=== PATIENT | male | born 1960 | race African-American/Black ===

== ENCOUNTER 2017-04-01 02:48 | Emergency (ER) | payer OTHER ==
[~2017-04-01] VITALS: Ht 167.6 cm; Wt 97.1 kg
[~2017-04-01 02:48] MED LIST: ALBMDI INH; AMLO5TAB4 PO; ARIP30TA PO; ASPI-859 PO; ATRMDI INH; BUPR-120 PO; GLU500 PO; HYDR25TA4 PO; LOSA50TA3 PO; MIRT45TA5 PO; OMEP20CA10 PO; TRAZ-126 PO
[2017-04-01 03:04] VITALS: BP_SYST 148
--- NOTE | 2017-04-01 03:04 | NUR ---
Pt ambulatory to bed 8 for evaluation
--- NOTE | 2017-04-01 03:05 | NUR ---
Patient AOx4, ambulatory, presents to ER with complaint of epigastric pain x1 week and constipation x2 days. Patient states he is able to pass gas and is burping a lot. No other symptoms or complaints at this time.
--- NOTE | 2017-04-01 03:07 | NUR ---
ER MD Ley at bedside for medical evaluation.
[2017-04-01] MEDS ORDERED: NACL 0.9% 1,000 ML IV ONE (03:15)
[2017-04-01] MEDS ORDERED: ASPIRIN 81 MG TAB.CHEW PO ONE (03:15)
--- NOTE | 2017-04-01 03:20 | NUR ---
# 20 gauge angiocath placed to RAC. Use of asceptic technique. Opsite placed over site. Blood return noted. Blood for lab drawn from site. Flushed with 10 cc of normal saline. No evidence of infiltration noted. Patient tolerated well.
[2017-04-01 03:43] LABS: INR 1.1 (0.80-1.20); PROTHROMBIN TIME 10.9 SECS (9.5-12.5)
--- NOTE | 2017-04-01 04:00 | NUR ---
IVF infusing with no s/s of infiltration at this time. Will cont to monitor.
--- NOTE | 2017-04-01 04:05 | NUR ---
No adverse reactions noted after medication administration. Will continue to monitor.
[2017-04-01] MEDS ORDERED: PANTOPRAZOLE SODIUM 40 MG TAB PO ONE (04:15)
[2017-04-01 04:35] LABS: HEMATOCRIT 48.5 % (36-54); MEAN CORPUSCULAR VOLUME 71 fL (79.0-98.0); RED BLOOD CELL COUNT(AUTO) 6.84 MIL/uL (4.2-6.2)
[2017-04-01 04:36] LABS: MEAN CORPUSCULAR HEMOGLOBIN 22 pg (27-31); MEAN CORPUSCULAR HGB CONC 31 % (32-36); PLATELET COUNT (AUTO) 232 K/uL (130-430); RED CELL DISTRIBUTION WIDTH 14.9 % (9.0-15.0)
[2017-04-01 04:38] LABS: BASOPHILS % (AUTO) 3.1 % (0.0-2.0); EOSINOPHILS % (AUTO) 2.1 % (0.0-4.0); LYMPHOCYTES # (AUTO) 2.4 K/uL (1.0-5.5); LYMPHOCYTES % (AUTO) 34.4 % (20.5-51.5); MONOCYTES # (AUTO) 0.7 K/uL (0.0-1.0); MONOCYTES % (AUTO) 9.4 % (1.7-9.3); NEUTROPHILS # (AUTO) 3.6 K/uL (1.8-7.7)
[2017-04-01 04:39] LABS: BASOPHILS # (AUTO) 0.2 K/uL (0.0-0.2); EOSINOPHILS # (AUTO) 0.1 K/uL (0.0-0.4)
[2017-04-01 05:09] LABS: POTASSIUM 3.8 mmol/L (3.5-5.1)
[2017-04-01 05:10] LABS: ALBUMIN 3.8 g/dL (3.4-4.8); CALCIUM 10.8 mg/dL (8.4-11.0); CREATININE 1.07 mg/dL (0.55-1.30); TOTAL BILIRUBIN 0.2 mg/dL (0.0-1.0)
[2017-04-01 05:57] VITALS: BP_SYST 152
--- NOTE | 2017-04-01 05:57 | NUR ---
Patient given written and verbal discharge instructions and verbalizes understanding. ER MD discussed with patient the results and treatment provided. Patient in stable condition. ID arm band removed. IV catheter removed intact and dressing applied, no active bleeding. Rx of Omeprazole and MiraLax given. Patient educated on pain management and to follow up with PMD. Pain Scale 0/10. Opportunity for questions provided and answered.
== END 2017-04-01 05:57 | disposition home or self-care (01) ==
LOC: SED 02:48
DX: K29.70 Gastritis, unspecified, without bleeding (principal); J44.9 Chronic obstructive pulmonary disease, unspecified; K21.9 Gastro-esophageal reflux disease without esophagitis; I10 Essential (primary) hypertension; Z79.899 Other long term (current) drug therapy
CPT/HCPCS: 36415; 71045; 74021; 80053; 82550; 85025; 85610; 85730; 93005; 96360; 99285; J7030

== ENCOUNTER 2017-04-06 06:28 | Emergency (ER) | payer OTHER ==
[~2017-04-06] VITALS: Ht 167.6 cm; Wt 97.1 kg
[2017-04-06 06:35] VITALS: BP_SYST 147
--- NOTE | 2017-04-06 06:35 | NUR ---
Patient to ER bed 8 to gown for evaluation. Side rails up. Report given to ANNA MARIE CHAND.
--- NOTE | 2017-04-06 06:46 | NUR ---
PT AAOX4 CAME IN FROM HOME WITH A COMPLAINT OF BLACK STOOL FOR THE PAST 3 DAYS, NO CONSTIPATION, DIARRHEA NOTED. REPORTS DIZZINESS AND UPPER BODY CRAMPS. HAS HX OF HYPERTENSION AND COPD AND CURRENTLY A SMOKER. NO CHEST TIGHTNESS, DIFFICULTY BREATHING NOTED. SAFETY PRECAUTION OBSEREVED, WILL CONTINUE TO MONITOR PT.
--- NOTE | 2017-04-06 06:52 | NUR ---
OLIVIA MAC AT BEDSIDE FOR MEDICAL EVALUATION.
--- NOTE | 2017-04-06 07:15 | NUR ---
# 20 gauge angiocath placed to LEFT FOREARM. Use of asceptic technique. Opsite placed over site. Blood return noted. Blood for lab drawn from site. Flushed with 10 cc of normal saline. No evidence of infiltration noted. Patient tolerated well.
--- NOTE | 2017-04-06 07:20 | NUR ---
REPORT GIVEN TO ONCOMING RN.
--- NOTE | 2017-04-06 07:21 | NUR ---
Chest xray done.
[2017-04-06] MEDS: ONDANSETRON HCL 4 MG/2 ML VIAL IM ONE (07:22)
[2017-04-06] MEDS: PANTOPRAZOLE SODIUM 40 MG/VIAL (PROTONIX) IVP ONE (07:23)
[2017-04-06] MEDS: NACL 0.9% 1,000 ML IV ONE (07:26)
--- NOTE | 2017-04-06 07:26 | NUR ---
ZOFRAN , PROTONIX IV GIVEN. IVF NSS STARTED ORDERED.
[2017-04-06 07:39] LABS: BASOPHILS # (AUTO) 0.1 K/uL (0.0-0.2); BASOPHILS % (AUTO) 1.5 % (0.0-2.0); EOSINOPHILS # (AUTO) 0.2 K/uL (0.0-0.4); EOSINOPHILS % (AUTO) 2.3 % (0.0-4.0); HEMATOCRIT 47.5 % (36-54); LYMPHOCYTES # (AUTO) 2.8 K/uL (1.0-5.5); LYMPHOCYTES % (AUTO) 33.9 % (20.5-51.5); MEAN CORPUSCULAR HEMOGLOBIN 23 pg (27-31); MEAN CORPUSCULAR HGB CONC 32 % (32-36); MEAN CORPUSCULAR VOLUME 71 fL (79.0-98.0); MONOCYTES # (AUTO) 0.7 K/uL (0.0-1.0); NEUTROPHILS # (AUTO) 4.4 K/uL (1.8-7.7); NEUTROPHILS % (AUTO) 54.3 % (40.0-70.0); PLATELET COUNT (AUTO) 207 K/uL (130-430); RED BLOOD CELL COUNT(AUTO) 6.67 MIL/uL (4.2-6.2); RED CELL DISTRIBUTION WIDTH 14.7 % (9.0-15.0); WHITE BLOOD COUNT (AUTO) 8.2 K/uL (4.8-10.8)
[2017-04-06 07:41] LABS: CREATININE 0.89 mg/dL (0.55-1.30)
[2017-04-06 07:44] LABS: PROTHROMBIN TIME 10.4 SECS (9.5-12.5)
[2017-04-06 07:46] LABS: ALBUMIN 4.2 g/dL (3.4-4.8); TOTAL BILIRUBIN 0.4 mg/dL (0.0-1.0)
--- NOTE | 2017-04-06 09:40 | NUR ---
Patient given written and verbal discharge instructions and verbalizes understanding. ER MD PEDRAZA discussed with patient the results and treatment provided. Patient in stable condition. ID arm band removed. IV catheter removed intact and dressing applied, no active bleeding. NO Rx given. Patient educated on pain management and to follow up with PMD. Pain Scale 0 . Opportunity for questions provided and answered.
[2017-04-06 09:48] VITALS: BP_SYST 130
== END 2017-04-06 09:48 | disposition home or self-care (01) ==
LOC: SED 06:28
DX: K29.70 Gastritis, unspecified, without bleeding (principal); J44.9 Chronic obstructive pulmonary disease, unspecified; K21.9 Gastro-esophageal reflux disease without esophagitis; I10 Essential (primary) hypertension; Z79.899 Other long term (current) drug therapy
CPT/HCPCS: 36415; 71045; 80053; 82272; 85025; 85610; 85730; 86886; 86900; 86901; 93005; 96361; 96374; 96375; 99285; C9113; J2405; J7030

== ENCOUNTER 2020-09-05 13:10 | Inpatient (IN) | payer MEDICAID, SELFPAY ==
[~2020-09-05] VITALS: Ht 167.6 cm; Wt 93.0 kg
[~2020-09-05 13:10] MED LIST changes: -MIRT45TA5 PO; +MIRT45TA83 PO; -OMEP20CA10 PO; +OMEP20CA15 PO; -TRAZ-126 PO; +TRAZ-251 PO
[2020-09-05 13:12] VITALS: BP_SYST 154
[2020-09-05 14:43] LABS: BARBITURATE, URINE NEGATIVE (NEG <=200); BENZODIAZEPINE, URINE NEGATIVE (NEG <=150); CANNABINOID, URINE NEGATIVE (NEG <=50); COCAINE, URINE NEGATIVE (NEG <=150); METHAMPHETAMINES SCREEN,URINE NEGATIVE (NEG <=500); OPIATE, URINE NEGATIVE (NEG <=100); PHENCYCLIDINE SCREEN,URINE NEGATIVE (NEG <=25); UR TRICYCLIC ANTIDEPRESSANTS NEGATIVE (NEG <=300); URINE AMPHETAMINE NEGATIVE (NEG <=500); URINE METHADONE NEGATIVE (NEG <=200); URINE OXYCODONE SCREEN NEGATIVE (NEG <=100); URINE PROPOXYPHENE SCREEN NEGATIVE (NEG <=300)
[2020-09-05] MEDS ORDERED: ASPIRIN 325 MG TABLET (ECOTRIN) PO ONE (14:43)
[2020-09-05] MEDS ORDERED: NITROGLYCERIN 0.4 MG TAB.SUBL SL ONE ×2 (14:44→14:45)
[2020-09-05] MEDS ORDERED: ASPIRIN 325 MG TABLET PO ONE (14:45)
[2020-09-05 15:06] LABS: ANION GAP 12 (5-15); CALCIUM 9.1 mg/dL (8.4-11.0); CHLORIDE 98 mmol/L (98-107); CREATININE 0.94 mg/dL (0.55-1.30); GLUCOSE 117 mg/dL (70-99); POTASSIUM 4.2 mmol/L (3.5-5.1); SODIUM SERUM 133 mmol/L (136-145); UREA NITROGEN, BLOOD 9 mg/dL (8-21)
[2020-09-05 15:08] LABS: GFR AFRICAN AMERICAN 106 mL/min (>90)
[2020-09-05 15:10] LABS: BASOPHILS % (AUTO) 0.4 % (0.0-2.0); EOSINOPHILS # (AUTO) 0.1 K/uL (0.0-0.4); HEMATOCRIT 44.9 % (36-54); HEMOGLOBIN 14.5 g/dL (14.0-18.0); LYMPHOCYTES # (AUTO) 3.5 K/uL (1.0-5.5); LYMPHOCYTES % (AUTO) 36.4 % (20.5-51.5); MEAN CORPUSCULAR HEMOGLOBIN 22 pg (27-31); MEAN CORPUSCULAR HGB CONC 32 % (32-36); MEAN CORPUSCULAR VOLUME 69 fL (79.0-98.0); MONOCYTES # (AUTO) 0.8 K/uL (0.0-1.0); MONOCYTES % (AUTO) 8.2 % (1.7-9.3); NEUTROPHILS # (AUTO) 5.2 K/uL (1.8-7.7); PLATELET COUNT (AUTO) 231 K/uL (130-430); RED BLOOD CELL COUNT(AUTO) 6.48 MIL/uL (4.2-6.2); WHITE BLOOD COUNT (AUTO) 9.7 K/uL (4.8-10.8)
[2020-09-05 15:15] LABS: ALANINE AMINOTRANSFERASE 100 U/L (12-78); ALBUMIN 3.5 g/dL (3.4-4.8); ASPARTATE AMINOTRANSFERASE 65 U/L (10-37); TOTAL BILIRUBIN 0.4 mg/dL (0.0-1.0)
[2020-09-05] MEDS ORDERED: ACETAMINOPHEN 500 MG TABLET PO PRN (16:15)
[2020-09-05] MEDS ORDERED: NITROGLYCERIN 1 INCH (GM) OINT. TP ONE (16:15)
[2020-09-05] MEDS ORDERED: HYDROcodone/ACETAMIN 10-325 MG TAB PO ONE (16:30)
[2020-09-05] MEDS ORDERED: KETOROLAC TROMETHAMINE 30 MG VIAL IVP ONE (16:30)
[2020-09-05] MEDS ORDERED: LIP40 PO (17:12)
[2020-09-05] MEDS ORDERED: RISP2TAB5 PO (17:12)
[2020-09-05] MEDS ORDERED: GLUXR500 PO (17:12)
[2020-09-05] MEDS ORDERED: BUPR75TA20 PO (17:12)
[2020-09-05] MEDS ORDERED: LANS15CA14 PO (17:12)
[2020-09-05] MEDS ORDERED: MIRT30TA7 PO (17:12)
[2020-09-05] MEDS ORDERED: HYDR12.55 PO (17:12)
[2020-09-05] MEDS ORDERED: GABA-529 PO (17:12)
[2020-09-05] MEDS ORDERED: ASPI-1155 PO (17:12)
[2020-09-05] MEDS ORDERED: ALBMDI INH (17:12)
[2020-09-05] MEDS ORDERED: BUPR450T2 PO (17:12)
[2020-09-05] MEDS ORDERED: METO25TA3 PO (17:12)
[2020-09-05] MEDS ORDERED: AMLO5TAB4 PO (17:12)
[2020-09-05] MEDS ORDERED: LOSA100T3 PO (17:12)
[2020-09-05 17:46] VITALS: BP_SYST 133
[2020-09-05 20:00] VITALS: BP_SYST 137
[2020-09-06] VITALS: BP_SYST 112
[2020-09-06] MEDS ORDERED: OMEPRAZOLE Non-Formulary 20 MG CAPSULE.DR PO SCH (07:00)
[2020-09-06] MEDS ORDERED: PANTOPRAZOLE SODIUM 40 MG TAB PO SCH (07:00)
[2020-09-06 07:14] LABS: ANION GAP 6 (5-15); CALCIUM 8.7 mg/dL (8.4-11.0); CHLORIDE 99 mmol/L (98-107); CREATININE 0.87 mg/dL (0.55-1.30); GLUCOSE 96 mg/dL (70-99); POTASSIUM 3.5 mmol/L (3.5-5.1); SODIUM SERUM 130 mmol/L (136-145); UREA NITROGEN, BLOOD 12 mg/dL (8-21)
[2020-09-06 07:18] LABS: BASOPHILS % (AUTO) 0.5 % (0.0-2.0); EOSINOPHILS # (AUTO) 0.2 K/uL (0.0-0.4); EOSINOPHILS % (AUTO) 2.4 % (0.0-4.0); HEMATOCRIT 40.9 % (36-54); HEMOGLOBIN 13.2 g/dL (14.0-18.0); LYMPHOCYTES # (AUTO) 2.4 K/uL (1.0-5.5); LYMPHOCYTES % (AUTO) 33.2 % (20.5-51.5); MEAN CORPUSCULAR HEMOGLOBIN 22 pg (27-31); MEAN CORPUSCULAR HGB CONC 32 % (32-36); MEAN CORPUSCULAR VOLUME 69 fL (79.0-98.0); MONOCYTES # (AUTO) 0.4 K/uL (0.0-1.0); NEUTROPHILS # (AUTO) 4.1 K/uL (1.8-7.7); NEUTROPHILS % (AUTO) 57.9 % (40.0-70.0); PLATELET COUNT (AUTO) 191 K/uL (130-430); RED BLOOD CELL COUNT(AUTO) 5.96 MIL/uL (4.2-6.2); RED CELL DISTRIBUTION WIDTH 14.9 % (9.0-15.0); WHITE BLOOD COUNT (AUTO) 7.1 K/uL (4.8-10.8)
[2020-09-06 07:27] LABS: ALANINE AMINOTRANSFERASE 80 U/L (12-78); ALBUMIN 3.3 g/dL (3.4-4.8); ASPARTATE AMINOTRANSFERASE 42 U/L (10-37); THYROID STIMULATING HORMONE 4.43 uIu/mL (0.36-3.74); TOTAL BILIRUBIN 0.4 mg/dL (0.0-1.0)
[2020-09-06 07:28] LABS: GFR AFRICAN AMERICAN 116 mL/min (>90)
[2020-09-06 07:58] VITALS: BP_SYST 129
[2020-09-06 08:41] LABS: CHOLESTEROL 107 mg/dL (<200); HDL CHOLESTEROL 59 mg/dL (>45); LDL CHOLESTEROL 35 mg/dL (<100); TRIGLYCERIDES 138 mg/dL (30-150)
[2020-09-06] MEDS ORDERED: buPROPion HCL 150 MG XL TAB PO SCH (09:00)
[2020-09-06] MEDS ORDERED: ASPIRIN 81 MG TABLET(ECOTRIN) PO SCH (09:00)
[2020-09-06] MEDS ORDERED: METOPROLOL SUCCINATE 25 MG TAB.SR.24H (TOPROL XL) PO SCH (09:00)
[2020-09-06] MEDS ORDERED: ATORVASTATIN 20 MG TABLET PO SCH (09:00)
[2020-09-06 12:00] VITALS: BP_SYST 140
[2020-09-06 15:26] VITALS: BP_SYST 125
[2020-09-06 15:54] LABS: FREE T4 (FREE THYROXINE) 0.9 ng/dl (0.8-1.5)
[2020-09-06] MEDS ORDERED: GABAPENTIN 100 MG CAPSULE PO SCH (18:00)
[2020-09-07 08:06] LABS: HEPATITIS A AB, IgM Negative (Negative); HEPATITIS B CORE AB, IgM Negative (Negative); HEPATITIS B SURFACE AG Negative (Negative)
== END 2020-09-06 15:45 | disposition home or self-care (01) | DRG 140 ==
LOC: SED 13:10 → STU 16:05
PROVIDERS: ADMIT Internal Medicine; ATTEND Internal Medicine
DX: J44.1 Chronic obstructive pulmonary disease with (acute) exacerbation (principal); F20.9 Schizophrenia, unspecified; R07.89 Other chest pain; I25.10 Atherosclerotic heart disease of native coronary artery without angina pectoris; E66.9 Obesity, unspecified; I10 Essential (primary) hypertension; E78.5 Hyperlipidemia, unspecified; F17.210 Nicotine dependence, cigarettes, uncomplicated; Z20.822 Contact with and (suspected) exposure to COVID-19; F32.9 Major depressive disorder, single episode, unspecified; R73.03 Prediabetes; K21.9 Gastro-esophageal reflux disease without esophagitis; Z79.899 Other long term (current) drug therapy; Z79.82 Long term (current) use of aspirin; Z68.33 Body mass index [BMI] 33.0-33.9, adult; Z90.49 Acquired absence of other specified parts of digestive tract
CPT/HCPCS: 36415; 71045; 80053; 80061; 80074; 80307; 83036; 83880; 84439; 84443; 84484; 85025; 93005; 93306; 96374; 99285; G0378; G0482; J1885

== ENCOUNTER 2021-01-25 07:11 | Emergency (ER) | payer MEDICAID, SELFPAY ==
[~2021-01-25] VITALS: Ht 172.7 cm; Wt 95.3 kg
[2021-01-25 07:11] VITALS: BP_SYST 147
[~2021-01-25 07:11] MED LIST changes: +ASPI-1155 PO; +BUPR450T2 PO; +BUPR75TA20 PO; +GABA-529 PO; +GLUXR500 PO; +HYDR12.55 PO; +LANS15CA14 PO; +LIP40 PO; +LOSA100T3 PO; +METO25TA3 PO; +MIRT-92 PO; +RISP2TAB5 PO
[2021-01-25] MEDS ORDERED: PANTOPRAZOLE SODIUM 40 MG TAB ONE (07:49)
[2021-01-25] MEDS: PANTOPRAZOLE SODIUM 40 MG TAB PO ONE (07:53)
[2021-01-25 08:16] LABS: BASOPHILS % (AUTO) 0.3 % (0.0-2.0); EOSINOPHILS # (AUTO) 0.1 K/uL (0.0-0.4); EOSINOPHILS % (AUTO) 0.8 % (0.0-4.0); HEMATOCRIT 42.6 % (36-54); HEMOGLOBIN 13.7 g/dL (14.0-18.0); LYMPHOCYTES # (AUTO) 2.4 K/uL (1.0-5.5); MEAN CORPUSCULAR HEMOGLOBIN 23 pg (27-31); MEAN CORPUSCULAR HGB CONC 32 % (32-36); MEAN CORPUSCULAR VOLUME 70 fL (79.0-98.0); MONOCYTES # (AUTO) 0.8 K/uL (0.0-1.0); MONOCYTES % (AUTO) 9.8 % (1.7-9.3); NEUTROPHILS # (AUTO) 5.2 K/uL (1.8-7.7); NEUTROPHILS % (AUTO) 61.1 % (40.0-70.0); PLATELET COUNT (AUTO) 197 K/uL (130-430); RED BLOOD CELL COUNT(AUTO) 6.09 MIL/uL (4.2-6.2); RED CELL DISTRIBUTION WIDTH 16.5 % (9.0-15.0); WHITE BLOOD COUNT (AUTO) 8.6 K/uL (4.8-10.8)
[2021-01-25 08:22] LABS: CALCIUM 8.3 mg/dL (8.4-11.0); CREATININE 0.89 mg/dL (0.55-1.30); POTASSIUM 3.9 mmol/L (3.5-5.1)
[2021-01-25 08:27] LABS: ALBUMIN 3.1 g/dL (3.4-4.8); TOTAL BILIRUBIN 0.3 mg/dL (0.0-1.0)
[2021-01-25 10:54] VITALS: BP_SYST 138
[2021-01-25] MEDS ORDERED: PRO40 PO (10:58)
== END 2021-01-25 10:53 | disposition home or self-care (01) ==
LOC: SED 07:11
DX: K20.90 Esophagitis, unspecified without bleeding (principal); I10 Essential (primary) hypertension; K21.9 Gastro-esophageal reflux disease without esophagitis; J44.9 Chronic obstructive pulmonary disease, unspecified; Z79.899 Other long term (current) drug therapy; Z79.84 Long term (current) use of oral hypoglycemic drugs
CPT/HCPCS: 36415; 71045; 80053; 84484; 85025; 93005; 99285

== ENCOUNTER 2022-10-30 09:10 | Emergency (ER) | payer MEDICAID ==
[~2022-10-30] VITALS: Ht 167.6 cm; Wt 87.1 kg
[~2022-10-30 09:10] MED LIST changes: -LOSA100T3 PO; +LOSA100T4 PO; +PRO40 PO
[2022-10-30 09:16] VITALS: BP_SYST 140; PULSE 76; RESP 20; TEMP 97.9; O2SAT 97
[2022-10-30] MEDS ORDERED: ATEN-41 PO (09:27)
[2022-10-30] MEDS ORDERED: ASPI-524 PO (09:27)
[2022-10-30 09:45] VITALS: BP_SYST 146; PULSE 69; RESP 18; TEMP 98.1
[2022-10-30] MEDS ORDERED: IPRATROPIUM BROM 0.5 MG/2.5 ML VIAL.NEB (ATROVENT) INH ONE ×3 (10:00→10:45)
[2022-10-30] MEDS ORDERED: ALBUTEROL SULFATE 0.083% 2.5 MG/3 ML VIAL.NEB INH ONE ×2 (10:00→10:45)
[2022-10-30] MEDS ORDERED: IPRATROPIUM/ALBUTEROL SULFATE 3 ML AMPUL.NEB (DUONEB) ONE ×2 (10:02→10:05)
[2022-10-30 11:11] VITALS: O2SAT 96
[2022-10-30 11:15] LABS: BASOPHILS # (AUTO) 0.1 K/uL (0.0-0.2); BASOPHILS % (AUTO) 0.7 % (0.0-2.0); EOSINOPHILS # (AUTO) 0.1 K/uL (0.0-0.4); EOSINOPHILS % (AUTO) 1.3 % (0.0-4.0); HEMATOCRIT 42.1 % (36-54); HEMOGLOBIN 13.1 g/dL (14.0-18.0); LYMPHOCYTES # (AUTO) 3.3 K/uL (1.0-5.5); MEAN CORPUSCULAR HEMOGLOBIN 22 pg (27-31); MEAN CORPUSCULAR HGB CONC 31 % (32-36); MEAN CORPUSCULAR VOLUME 70 fL (79.0-98.0); MONOCYTES # (AUTO) 0.7 K/uL (0.0-1.0); MONOCYTES % (AUTO) 8.8 % (1.7-9.3); NEUTROPHILS # (AUTO) 3.6 K/uL (1.8-7.7); NEUTROPHILS % (AUTO) 46.2 % (40.0-70.0); PLATELET COUNT (AUTO) 185 K/uL (130-430); RED BLOOD CELL COUNT(AUTO) 5.99 MIL/uL (4.2-6.2); RED CELL DISTRIBUTION WIDTH 15.6 % (9.0-15.0); WHITE BLOOD COUNT (AUTO) 7.8 K/uL (4.8-10.8)
[2022-10-30] MEDS ORDERED: KETOROLAC TROMETHAMINE 60 MG/2 ML VIAL IM ONE (11:15)
[2022-10-30 11:41] LABS: ANION GAP 8 (5-15); CALCIUM 8.5 mg/dL (8.4-11.0); CARBON DIOXIDE 28 mmol/L (23-29); CHLORIDE 102 mmol/L (98-107); CREATININE 0.64 mg/dL (0.55-1.30); GFR AFRICAN AMERICAN 164 mL/min (>90); GLUCOSE 93 mg/dL (74-106); SODIUM SERUM 138 mmol/L (136-145); UREA NITROGEN, BLOOD 9 mg/dL (8-21)
[2022-10-30 11:45] LABS: GFR NON AFRICAN-AMERICAN 136 mL/min (>90)
[2022-10-30 11:48] LABS: ALANINE AMINOTRANSFERASE 84 U/L (12-78); ALBUMIN 3.2 g/dL (3.4-4.8); ASPARTATE AMINOTRANSFERASE 34 U/L (10-37); LIPASE 294 U/L (73-393); TOTAL BILIRUBIN 0.5 mg/dL (0.0-1.0)
[2022-10-30] MEDS ORDERED: ALBMDI INH (12:43)
== END 2022-10-30 12:55 | disposition left against medical advice (07) ==
LOC: SED 09:10
DX: J44.9 Chronic obstructive pulmonary disease, unspecified (principal); R07.9 Chest pain, unspecified; K21.9 Gastro-esophageal reflux disease without esophagitis; I10 Essential (primary) hypertension; F17.210 Nicotine dependence, cigarettes, uncomplicated; Z79.899 Other long term (current) drug therapy
CPT/HCPCS: 36415; 80053; 83690; 83880; 84484; 85025; 93005; 94640; 99284; J1885